=== PATIENT | female | born 1980 | race Caucasian/White ===

== ENCOUNTER 2019-01-09 18:52 | Inpatient (IN) | payer OTHER ==
--- NOTE | 2019-01-09 19:48 | PN ---
L&D Outpatient: Visit - Reproductive Information Estimated Due Date: 01/04/19 Gestational Age: 40 Weeks and 5 Days : 3 Para: 2 - Reason for Visit Visit Reason: 38yo, , IUP@40+5 here for a labor evaluation - Antepartal Records Antepartal Record: Reviewed, Complicated by: - S<D, AMA - Patient History Patient History Significant: No Review of Systems Constitutional: Uncomfortable CV Complaint: No Respiratory: Shortness of Breath: No Gastrointestinal: No Nausea/Vomiting Genitourinary: No Dysuria, No Bleeding, No Leaking Fluid Musculoskeletal: Contractions Neurological: No Headache Movement: Normal L&D Outpatient: Exam Vitals - Most Recent: HR 88, RR 18, BP 124/71, O2 100% - Cervical Exam Cervical Exam: First exam by RN, high and hard to reach Repeat exam by CNM /-2 - Abdominal Exam Abdomen Exam: Non-Tender - Membranes Membrane Status: Intact - Ultrasound/Biophysical Profile Ultrasound Status: Not Done EFM Findings - External Monitor Findings Baseline Heart Rate: 140 External Monitor Findings: Accelerations Present, No Pattern of Variable or Late Decelerations, Variability Moderate, Baseline Stable External Monitor Findings Comment: No evidence of metabolic acidemia Contractions: Regular - q5 mins L&D Outpatient: Asses/Plan Assessment: 38yo, , IUP@40+5, here in early labor Plan: Continue Observation - Plan: IV pain medication, VE prn
[2019-01-09 20:07] LABS: Urine Appearance Clear; Urine Bacteria 1+ (Absent); Urine Bilirubin Negative (Negative); Urine Blood 1+ (Negative); Urine Color Yellow; Urine Glucose Negative (Negative); Urine Ketones 1+ (Negative); Urine Nitrite Negative (Negative); Urine Protein Negative (Negative); Urine Red Blood Cell Trace(0-2/hpf) (Absent); Urine Specific Gravity 1.008 (1.010-1.030); Urine Squamous Epithelial Cell Present (Absent); Urine Urobilinogen Negative (Negative); Urine White Blood Cell Trace(0-5/hpf) (Absent)
[2019-01-09 20:15] LABS: Urine Benzodiazepine Screen None Detected (None Detect); Urine Opiates Screen None Detected (None Detect)
[2019-01-09] MEDS ORDERED: Nalbuphine* 10 MG/ML 1 ML VIAL IV PRN (21:11)
[2019-01-09] MEDS ORDERED: Promethazine INJ(RESTRICTED)* 25 MG/ML 1 ML VIAL IV PRN (21:11)
[2019-01-09] MEDS ORDERED: Buffered Lidocaine 1% SYRIN* 1 ML/SYRINGE INTRADERM ONE (21:12)
[2019-01-09] MEDS ORDERED: Lactated Ringers 1000 ML Bag* 1,000 ML IV ONE (21:12)
--- NOTE | 2019-01-09 21:21 | HP ---
General Information - Reason for Visit 38, , IUP@40+5 here in early labor - General Information Maternal Age: 38 Grav: 3 Para: 2 SAB: 0 IEA: 0 Estimated Due Date: 01/04/19 Determined By: LMP Gestational Age in Weeks/Days: 40+5 Maternal Blood Type and Rh: B Positive - Results this Serology/RPR Result: Non-Reactive Rubella Result: Immune HBsAg Result: Negative HIV Result: Negative GBS Culture Result: Negative Past Medical History Delivery History: Hx Uncomplicated Vaginal Delivery Past Medical History Comment: Migraine with aura Anxiety Past Surgical History Comment: wisdom tooth extraction Family History Comment: Father: colon cancer Mother: diabetes, cirrhosis Sister 1: obesity PGM: skin cancer, breast cancer PGF: HTN. bladder cancer MGM: diabetes MGF: emphysema - Antepartal Records Antepartal Records: Reviewed, Complicated by: - AMA, S<D Review of Systems Constitutional: Uncomfortable CV Complaint: No Respiratory: Shortness of Breath: No Gastrointestinal: No Nausea/Vomiting Genitourinary: No Dysuria, No Leaking Fluid, Spotting - bloody show Musculoskeletal: Contractions Neurological: No Headache Movement: Normal Exam Allergies/Adverse Reactions: Allergies sulfamethoxazole [From Bactrim] Allergy (Severe, Verified 01/09/19 21:25) See Comment TONGUE SWELLING trimethoprim [From Bactrim] Allergy (Severe, Verified 01/09/19 21:25) See Comment TONGUE SWELLING HR 88, RR 18, BP 124/71, O2 100% Lab Values - Entire Visit: Laboratory Tests 01/09/19 01/09/19 19:10 19:10 Urine Color Yellow Urine Appearance Clear Urine pH 7.0 Ur Specific Gates 1.008 L Urine Protein Negative Urine Ketones 1+ A Urine Blood 1+ A Urine Nitrate Negative Urine Bilirubin Negative Urine Urobilinogen Negative Ur Leukocyte Esterase Negative Urine WBC (Auto) Trace(0-5/hpf) Urine RBC (Auto) Trace(0-2/hpf) Ur Squamous Epith Cells Present A Urine Bacteria 1+ A Urine Glucose Negative Urine Opiates Screen None detected Ur Barbiturates Screen None detected Ur Phencyclidine Scrn None detected Ur Amphetamines Screen None detected U Benzodiazepines Scrn None detected Urine Cocaine Screen None detected U Cannabinoids Screen None detected - Measurements Height: 5 ft 3 in Weight: 155 lb Weight in lbs: 155.142400 Body Mass Index (BMI): 27.4 Pre- Weight: 143 lb Weight Gained This : 12 lbs and 0 ozs - Exam Breast: Breast Exam Deferred CVA: No CVA Tenderness Extremities: No Edema Heart: Normal Rhythm/Heart Sounds HEENT: No Significant Findings Lungs: Clear Bilaterally Rectal: Rectal Exam Deferred Reflexes: DTR 2+ - Ultrasound/Biophysical Profile Ultrasound Status: Not Done Targeted Exam Findings Estimated Weight: 7lbs Cervical Exam: 1cm Effacement: 70% Station: -2 Presenting Part: Vertex Membrane Status: Intact Bleeding/Discharge: Bloody Show EFM Findings - External Monitor Findings Baseline Heart Rate: 140 External Monitor Findings: Accelerations Present, No Pattern of Variable or Late Decelerations, Variability Moderate External Monitor Findings Comment: No evidence of metabolic acidemia Contractions: Regular, 45-90 Seconds - q4-5 Assessment/Plan - Assessment 38yo, , IUP@40+5 in early labor GBS negative, RI, B+, VSS : S<D, AMA No evidence of metabolic acidemia Regular contractions, good resting tone Pt very uncomfortable with contractions, requesting pain medication - Plan Plan: Admit - Anticipate Vaginal Delivery Plan Comment: Admit to L&D PARQ discussion about pain relief options. Given pt is at 1cm, will start with IV nubain/phenergan Plan for epidural with advancing cervical dilation Anticipate progression to active labor and
[2019-01-09 21:39] LABS: ABS Lymphocytes 1.4 10^3/ul (1.0-4.8); ABS Monocytes 0.7 10^3/ul (0-0.8); ABS Neutrophils 7.2 10^3/ul (1.5-7.7); Eosinophil % 0.4 %; Hematocrit 40 % (35-47); Hemoglobin 13.4 g/dL (12.0-16.0); Lymphocyte % 15.2 %; Mean Corpuscular HGB Conc 34 g/dL (31-36); Mean Corpuscular Hemoglobin 31 pg (27-31); Mean Corpuscular Volume 92 fL (80-97); Mean Platelet Volume 9.9 fL (7.4-10.4); Platelet Count 163 10^3/uL (150-450); Red Cell Distribution Width 14 % (10-15); White Blood Count 9.4 10^3/uL (3.5-10.8)
[2019-01-09] MEDS: Lactated Ringers 1000 ML Bag* 1,000 ML IV SCH (23:30)
--- NOTE | 2019-01-09 23:37 | PN ---
Progress Note - Progress Note Date of Service: 01/09/19 Note: S: Called by RN for SROM to mec-stained fluid. Pt is shaking and uncomfortable in bed, requesting an epidural O: Per RN check, 6cm/70%/-3 FHR: 140, moderate variability, +accels, occasional variable decels Contractions: q5 mins A: IUP@40+5 in active labor regular contractions no evidence of metabolic acidemia P: Epidural now. Anesthesia notified. VE PRN Anticipate progression to
[2019-01-09] MEDS ORDERED: Bupivacaine 0.25% SDV PF* 10 ML VIAL INJ ONE (23:43)
[2019-01-09] MEDS ORDERED: OBEPIDURAL* 250 ML EPIDURAL ONE (23:49)
[2019-01-10] MEDS ORDERED: Famotidine TAB* 20 MG PO PRN (00:09)
[2019-01-10] MEDS ORDERED: Sodium Citrate/Citric Acid* 15 ML UDC PO PRN (00:09)
[2019-01-10] MEDS ORDERED: EPHEDrine (Pressors)* 50 MG/ML VIAL IV PUSH PRN (00:09)
[2019-01-10] MEDS ORDERED: Phenylephrine 40 MCG/ML SYRINGE IV PUSH PRN (00:09)
[2019-01-10] MEDS ORDERED: Lactated Ringers 1000 ML Bag* 1,000 ML IV ONE (00:09)
[2019-01-10] MEDS ORDERED: Oxytocin in LR* 20 UNITS/1,000 ML BAG IVPB ONE (00:53)
[2019-01-10] MEDS ORDERED: Lactated Ringers 1000 ML Bag* 1,000 ML IV SCH ×2 (01:00→07:00)
[2019-01-10] MEDS ORDERED: OBEPIDURAL* 250 ML EPIDURAL SCH (01:00)
--- NOTE | 2019-01-10 02:50 | PN ---
Progress Note - Progress Note Date of Service: 01/10/19 Note: S: Pt is comfortable with epidural, shaking. O: Per RN check, 10cm/100%/-1 FHR: 140, moderate variability, +accels, occasional variable decels Contractions: q2-3 mins A: IUP@40+5 in active labor regular contractions no evidence of metabolic acidemia P: VE PRN Anticipate progression to
[2019-01-10] MEDS: Lactated Ringers 1000 ML Bag* 1,000 ML IV SCH (03:55)
[2019-01-10] MEDS ORDERED: Dibucaine 1% 28.35 GM TUBE PR PRN (06:16)
[2019-01-10] MEDS ORDERED: Glycerin ADULT SUPP PR PRN (06:16)
[2019-01-10] MEDS ORDERED: Witch Hazel PAD* JAR TOPICAL PRN (06:16)
--- NOTE | 2019-01-10 06:34 | PROCNOTE ---
[facility] OB: Delivery Note - Delivery A Date of : 01/10/19 Time of : 05:42 [place] Sex: Female Weight at : 7 lb Score 1 Minute: 6 Score 5 Minutes: 9 Gestational Age in Weeks and Days at Delivery: 40 Weeks and 6 Days Delivery Method: Spontaneous Vaginal Labor: Spontaneous Amniotic Fluid: Meconium Estimated Blood Loss: 300 Anesthesia/Analgesia: CEI for Labor Delivered By: Angie Milligan Nursery Level of Nursery: Regular/Bedside - Perineum Perineal Injury: Abrasion Only - Not Repaired Perineal Injury Comment: Periurthral abrasion Perineal Repair: None - Events Delivery Events of Note: Pitocin During Labor - Additional Delivery Notes Additional Delivery Notes: G3, now P3 at 40+5 weeks admitted in early labor. Following SROM with thin mec, pt requested an epidural. She then progressed to complete and complete, began spontaneously pushing at 0436 with good maternal effort. Slow controlled delivery of infant head OA to SHIRA at 0542. Shoulders followed with next push and passed to maternal abdomen. Spontaneous cry, HR > 110. Apgars 6 and 9. Cord doubly clamped and cut by infant's father once pulsations ceased, at least 3 minutes. Placenta delivered spontaneous and trini at 0608. Pitocin increased to 250 cc for brisk vaginal bleeding which quickly resolved, fundus firm with massage. Perineum and vagina carefully inspected, a periurethral abrasion was noted, but not repaired. Female infant , mother and baby stable at time of note. EBL = 300cc.
[2019-01-10] MEDS ORDERED: Oxytocin in LR* 20 UNITS/1,000 ML BAG IVPB SCH (07:00)
[2019-01-10] MEDS ORDERED: Ammonia Inhalant* 1 EA AMP ONE (07:47)
[2019-01-10] MEDS ORDERED: Ampicillin ADVAN(*) 2 GM in NS 0.9% 100 ML* 100 ML IVPB ONE (08:00)
[2019-01-10] MEDS ORDERED: Simethicone TAB* 80 MG TAB.CHEW PO SCH (08:30)
[2019-01-10] MEDS ORDERED: Gentamicin ADULT (*) 100 MG in NS 0.9% 100 ML* 100 ML IVPB ONE (08:30)
[2019-01-10] MEDS: Ibuprofen TAB* 600 MG PO SCH ×3 (09:29→21:57)
[2019-01-10] MEDS: Docusate CAP* 100 MG PO SCH ×3 (09:29→21:57)
--- NOTE | 2019-01-10 15:28 | PN ---
Progress Note - Progress Note Date of Service: 01/10/19 Note: Call by RN to report pt's uterus in above the umbilicus and deviated to the left. Pt reports full voids. Scant amount of lochia rubra noted on pad. Fundus firm to palpation on exam. No bleeding noted with fundal massage. Reviewed ultrasounds. No fibroids noted. Plan to bladder scan pt. Will monitor bleeding closely. If bleeding increases consider uterine atony vs. retained POC. -AM
[2019-01-10] MEDS ORDERED: Lidocaine 2% JELLY* 6 ML JELLY TOPICAL ONE (20:58)
[2019-01-10] MEDS: Escitalopram * 10 MG TAB PO SCH (21:57)
[2019-01-11] MEDS: Acetaminophen TAB* 325 MG PO PRN ×2 (01:18→08:38)
[2019-01-11] MEDS: Ibuprofen TAB* 600 MG PO SCH ×4 (04:03→21:36)
[2019-01-11 06:51] LABS: ABS Eosinophils 0.1 10^3/ul (0-0.6); ABS Lymphocytes 1.5 10^3/ul (1.0-4.8); ABS Monocytes 0.7 10^3/ul (0-0.8); ABS Neutrophils 6.9 10^3/ul (1.5-7.7); Eosinophil % 1.2 %; Hematocrit 31 % (35-47); Hemoglobin 10.9 g/dL (12.0-16.0); Lymphocyte % 16.4 %; Mean Corpuscular HGB Conc 36 g/dL (31-36); Mean Corpuscular Hemoglobin 33 pg (27-31); Mean Corpuscular Volume 92 fL (80-97); Mean Platelet Volume 10.1 fL (7.4-10.4); Platelet Count 134 10^3/uL (150-450); Red Blood Count 3.32 10^6 /uL (3.70-4.87); Red Cell Distribution Width 14 % (10-15); White Blood Count 9.2 10^3/uL (3.5-10.8)
[2019-01-11] MEDS: Docusate CAP* 100 MG PO SCH ×3 (08:38→21:36)
[2019-01-11] MEDS ORDERED: Ferrous Gluconate TAB* 324 MG TAB PO SCH (09:00)
[2019-01-11] MEDS ORDERED: Influenza VAC *QUAD* 2019-20* 0.5 ML SYRINGE IM ONE (12:00)
--- NOTE | 2019-01-11 16:08 | PN ---
Progress Note - Progress Note Date of Service: 01/11/19 Note: Pt with post delivery bladder distention. Had a Gomez catheter placed 01/10 around 2200 which was removed at pt request after 12 hours this morning around 1000. RN has been monitoring pre and post void bladder volumes. Initially pre void was approx 500mL per RN and pt only able to get approx 100mL out. After several hours of trying with minimal success RN reports bladder with approx 350mL by scan. Pt verbalizes strong preference for urology consult prior to discharge as she is not comfortable replacing the Gomez and doesn't want to be discharged home tomorrow with a Gomez with plan to follow-up with urology outpatient. JENNIFER called and spoke with urologist reduction plant supervisor. At this time he recommends the following 1) Reassure pt that this is a normal complication and she will recover 100% in 3-10 days 2) Initiate daily dose of Keflex for prophylaxis 3) Teach pt out to self catheterize 3 times daily. She should void in a hat prior to self cath and then measure total volume after catheterization. 4) Upon discharge she should call urology at to schedule outpatient follow-up. They will work with her to discontinue self catheterization when appropriate Above plan reviewed with RN. She will initiate. Report to LM who will be the discharging provider on 01/12/2019
[2019-01-11] MEDS: Cephalexin CAP* 500 MG PO SCH (16:56)
[2019-01-11] MEDS: Lidocaine 2% JELLY* 6 ML JELLY TOPICAL SCH ×2 (16:59→21:37)
[2019-01-11] MEDS: Escitalopram * 10 MG TAB PO SCH (21:21)
[2019-01-12] MEDS: Ibuprofen TAB* 600 MG PO SCH ×2 (02:00→09:05)
[2019-01-12 08:10] VITALS: BP 120/67
[2019-01-12] MEDS ORDERED: Influenza VAC *QUAD* 2019-20* 0.5 ML SYRINGE IM ONE (09:00)
[2019-01-12] MEDS: Docusate CAP* 100 MG PO SCH (09:05)
[2019-01-12] MEDS: Cephalexin CAP* 500 MG PO SCH (09:05)
--- NOTE | 2019-01-12 11:08 | PN ---
Progress Note - Progress Note Date of Service: 01/12/19 Note: Pt's urinary retention symptoms have improved significantly over night. She was able to void 500 cc in a single sitting and then another 200 cc, with a 100 cc residual. No palpable bladder distension, and she is finding it easier to initiate stream of urine, as well as reporting urine stream feels much stronger. Fundas firm at 2cc below umbilicus. Small rubra lochia. Perineum still mildly edematous with bruising noted to lower right of introitus. Consulted with Dr. Oliveira by phone. He is comfortable with pt discontinuing catheterization at this time and following up outpatient with Urology this week. She will continue to take prophylactic Keflex. Reviewed at length signs of urinary retention, how/ when to call. Pt comfortable with this plan. Will discharge home in stable condition.
== END 2019-01-12 11:58 | disposition home or self-care (01) | DRG 807 ==
LOC: MCHOBOUT 18:52 → MCHOB 23:15
PROVIDERS: ADMIT Advanced Practice Midwife; ATTEND Advanced Practice Midwife
PROC: 10E0XZZ Delivery of Products of Conception, External Approach (ICD-10-PCS; principal; 2019-01-10)
PROC: 4A1HXCZ Monitoring of Products of Conception, Cardiac Rate, External Approach (ICD-10-PCS; 2019-01-10)
DX: O48.0 Post-term pregnancy (principal); O77.0 Labor and delivery complicated by meconium in amniotic fluid; O71.82 Other specified trauma to perineum and vulva; R33.9 Retention of urine, unspecified; O76 Abnormality in fetal heart rate and rhythm complicating labor and delivery; O90.89 Other complications of the puerperium, not elsewhere classified; Z37.0 Single live birth; Z3A.40 40 weeks gestation of pregnancy; Z88.2 Allergy status to sulfonamides; Z88.1 Allergy status to other antibiotic agents; Z23 Encounter for immunization
CPT/HCPCS: 36415; 80307; 81003; 81015; 85025; 86850; 86900; 86901; 87086; 90686; A9270-GY; J1580; J2300; J2550; J3490

== ENCOUNTER 2019-06-15 05:25 | Emergency (ER) | payer OTHER ==
[2019-06-15] MEDS ORDERED: NS 0.9% 1000 ML** 1,000 ML IV ONE (05:47)
[2019-06-15] MEDS ORDERED: Ketorolac INJ* 30 MG/ML 1 ML VIAL IV PUSH ONE (05:48)
--- NOTE | 2019-06-15 05:48 | ED ---
Abdominal Pain/Female - HPI Summary HPI Summary: Patient is a 30-year-old female who presents emergency department for right lower quadrant abdominal pain, vomiting, diarrhea and nausea that started yesterday around 1400. Associated symptoms of decreased appetite. Patient notes pain is constant and increases at times. Pain is sharp and cramping in nature. Denies dysuria or hematuria. No past medical history. 5 months . On oral contraceptives. No history of abdominal surgery. Symptoms are moderate in severity. No current modifying factors. - History of Current Complaint Chief Complaint: EDAbdPain Stated Complaint: ABD/FLANK PAIN PER PT Time Seen by Provider: 06/15/19 05:37 Hx Obtained From: Patient Hx Last Menstrual Period: 02/15/15 Pain Intensity: 7 Allergies/Adverse Reactions: Allergies Allergy/AdvReac Type Severity Reaction Status Date / Time sulfamethoxazole Allergy Severe See Comment Verified 06/15/19 05:30 [From Bactrim] trimethoprim [From Bactrim] Allergy Severe See Comment Verified 06/15/19 05:30 Home Medications: Home Medications Escitalopram Oxalate [Lexapro 10 mg] 20 mg PO DAILY 02/18/15 [History Confirmed 06/15/19] traMADol TAB* [Ultram*] 50 mg PO Q6HR PRN #20 tab MDD 4 06/15/19 [Rx] PMH/Surg Hx/FS Hx/Imm Hx Previously Healthy: Yes Endocrine/Hematology History: Denies: Hx Diabetes, Hx Thyroid Disease Cardiovascular History: Denies: Hx Hypertension Respiratory History: Denies: Hx Asthma, Hx Chronic Obstructive Pulmonary Disease (COPD) GI History: Denies: Hx Ulcer Psychiatric History: Reports: Hx Anxiety Infectious Disease History: Yes Infectious Disease History: Reports: Hx of Known/Suspected MRSA Denies: Hx Hepatitis, Hx Human Immunodeficiency Virus (HIV), Traveled Outside the [place] in Last 30 Days - Family History Known Family History: Positive: Non-Contributory - Social History Occupation: Employed Full-time Lives: With Family Alcohol Use: Occasionally Substance Use Type: Reports: None Smoking Status (MU): Former Smoker Review of Systems Constitutional: Negative Negative: Fever ENT: Negative Cardiovascular: Negative Respiratory: Negative Positive: Abdominal Pain, Diarrhea, Nausea. Negative: Vomiting Genitourinary: Negative Negative: dysuria Neurological/Mental Status: Negative All Other Systems Reviewed And Are Negative: Yes Physical Exam Triage Information Reviewed: Yes Vital Signs On Initial Exam: Initial Vitals Temp Pulse Resp BP Pulse Ox 98.1 F 94 15 114/85 97 06/15/19 05:27 06/15/19 05:27 06/15/19 05:27 06/15/19 05:27 06/15/19 05:27 Vital Signs Reviewed: Yes Appearance: Positive: Pain Distress - Patient lying in bed, appears uncomfortable and nontoxic. Holding lower abdomen. Skin: Positive: Warm, Dry Head/Face: Positive: Normal Head/Face Inspection Eyes: Positive: Normal, EOMI Neck: Positive: Supple Respiratory/Lung Sounds: Positive: Clear to Auscultation, Breath Sounds Present Cardiovascular: Positive: Normal, RRR Abdomen Description: Positive: Other: - Abdomen is bloated with tenderness to the right lower quadrant and right upper quadrant on palpation. No rebound tenderness or guarding.. Negative: CVA Tenderness (R), CVA Tenderness (L) Neurological: Positive: Normal, CN Intact II-III Psychiatric: Positive: Affect/Mood Appropriate Procedures - Sedation Patient Received Moderate/Deep Sedation with Procedure: No Diagnostics - Vital Signs Vital Signs Temp Pulse Resp BP Pulse Ox 06/15/19 05:27 98.1 F 94 15 114/85 97 - Laboratory Result Diagrams: 06/15/19 06:00 06/15/19 06:00 Lab Statement: Any lab studies that have been ordered have been reviewed, and results considered in the medical decision making process. Abdominal Pain Fem Course/Dx - Course Course Of Treatment: Pt. with RLQ pain, bloating, N/D since yesterday. Afebrile. Pt. started on IV fluids and given toradol for pain. Labs and CT pending. Labs unremarkable. U/A shows RBCs, WBCs and bacteria, nitrate negative. Pain improved after toradol. . CT abd./pelvis per radiology: IMPRESSION: 1. 20.5 CM CYSTIC LESION ORIGINATING FROM THE RIGHT ADNEXA EXTENDING TO THE ABDOMEN MOST. 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 Pt. sees [facility] [place] and case discussed with Dr. Forbes and he would like to see her in office ALFIE to discuss treatment plan. Plan discussed with pt. and . Small rx of ultram rx for pain. Pt. will call office today for apt. Will return to ER for increased pain, fever, or if concerned. Pt. understands and agrees with plan. - Diagnoses Differential Diagnosis: Positive: Appendicitis, Constipation, Ectopic , Ovarian Cyst, Renal Colic, Urinary Tract Infection Provider Diagnoses: Ovarian mass, right Discharge ED - Sign-Out/Discharge Documenting (check all that apply): Patient Departure - Discharge Plan Condition: Improved Disposition: HOME Prescriptions: traMADol TAB* [Ultram*] 50 mg PO Q6HR PRN #20 tab MDD 4 PRN Reason: Pain - Moderate Patient Education Materials: Ovarian Cyst (ED) Referrals: Rahat Forbes MD [Medical Doctor] - Additional Instructions: Dr. Forbes's office will be contacting you this week to set up an appointment If you do not hear from office please call to schedule an appointment Pain medications as directed Can also take ibuprofen 400mg every 6 hours for pain as directed Return to ER for fever, increased pain, vomiting, or if concerned - Billing Disposition and Condition Condition: IMPROVED Disposition: Home - Attestation Statements Provider Attestation: I was available for consultation for this patient. I did not evaluate the patient or participate in any medical decision making or disposition decisions unless I am specifically named in the chart as having consulted on the patient. If I have consulted on the patient, please see my own ED note on the patient encounter. Kar Ferrer MD
[2019-06-15 06:10] LABS: Urine Appearance Clear; Urine Bilirubin Negative (Negative); Urine Blood 1+ (Negative); Urine Color Straw; Urine Glucose Negative (Negative); Urine Ketones Negative (Negative); Urine Nitrite Negative (Negative); Urine Protein Negative (Negative); Urine Specific Gravity 1.005 (1.010-1.030); Urine Urobilinogen Negative (Negative)
[2019-06-15 06:12] LABS: ABS Eosinophils 0.1 10^3/ul (0-0.6); ABS Lymphocytes 1.1 10^3/ul (1.0-4.8); ABS Monocytes 0.4 10^3/ul (0-0.8); ABS Neutrophils 3.2 10^3/ul (1.5-7.7); Eosinophil % 1.9 %; Hematocrit 45 % (35-47); Hemoglobin 15.7 g/dL (12.0-16.0); Lymphocyte % 23.3 %; Mean Corpuscular HGB Conc 35 g/dL (31-36); Mean Corpuscular Hemoglobin 32 pg (27-31); Mean Corpuscular Volume 90 fL (80-97); Mean Platelet Volume 8.6 fL (7.4-10.4); Nucleated Red Blood Cells % 0.1; Platelet Count 184 10^3/uL (150-450); Red Blood Count 4.95 10^6 /uL (3.70-4.87); Red Cell Distribution Width 13 % (10-15); White Blood Count 4.8 10^3/uL (3.5-10.8)
[2019-06-15 06:31] LABS: Albumin 4.4 g/dL (3.2-5.2); Albumin/Globulin Ratio 1.8 (1-3); BUN/Creatinine Ratio 19.1 (8-20); C Reactive Protein 2.9 mg/L (<8.01); Calcium 9.3 mg/dL (8.6-10.3); EGFR African American 85.9 (>60); Globulin 2.5 g/dL (2-4); Potassium 3.8 mmol/L (3.5-5.0); Total Bilirubin 0.8 mg/dL (0.2-1.0); Total Protein 6.9 g/dL (6.4-8.9)
[2019-06-15 06:35] LABS: HCG Pregnancy 1.26 mIU/mL
[2019-06-15 06:36] LABS: Urine Bacteria 1+ (Absent); Urine Red Blood Cell 1+(3-5/hpf) (Absent); Urine Squamous Epithelial Cell Present (Absent); Urine White Blood Cell 3+(>20/hpf) (Absent)
[2019-06-15] MEDS ORDERED: Iohexol 300* (CONTRAST) 10 ML SDV IV ONE (08:01)
[2019-06-15 10:16] VITALS: BP 139/83
[2019-06-15] MEDS ORDERED: traMADol TAB* 50 MG PO ONE (10:16)
== END 2019-06-15 10:40 | disposition home or self-care (01) ==
LOC: ED 05:25
DX: N83.9 Noninflammatory disorder of ovary, fallopian tube and broad ligament, unspecified (principal); R10.31 Right lower quadrant pain; R11.2 Nausea with vomiting, unspecified; R19.7 Diarrhea, unspecified; F41.9 Anxiety disorder, unspecified; Z88.2 Allergy status to sulfonamides; Z87.891 Personal history of nicotine dependence
CPT/HCPCS: 36415; 74177; 80053; 81003; 81015; 83690; 84702; 85025; 86140; 87077; 87086; 96361; 96374; 99283; A9270-GY; J1885; Q9967

== ENCOUNTER 2019-06-24 06:57 | Day surgery (SDC) | payer OTHER ==
[~2019-06-24 06:57] MED LIST: Buffered Lidocaine 1% SYRIN* 1 ML/SYRINGE INTRADERM ONE; Lactated Ringers 1000 ML Bag* 1,000 ML IV SCH
[2019-06-24] MEDS ORDERED: Buffered Lidocaine 1% SYRIN* 1 ML/SYRINGE INTRADERM ONE (07:51)
[2019-06-24] MEDS ORDERED: fentaNYL* 50 MCG/ML 2 ML VIAL (100 MCG VIAL) ONE ×2 (08:14→11:06)
[2019-06-24] MEDS ORDERED: Rocuronium* 10 MG/ML VIAL ONE (08:14)
[2019-06-24] MEDS ORDERED: Propofol* 10 MG/ML 20 ML BTL ONE (08:14)
[2019-06-24] MEDS ORDERED: Lidocaine 2% PF * 5 ML VIAL ONE (08:14)
[2019-06-24] MEDS ORDERED: Midazolam* 1 MG/ML 2 ML VIAL (2 MG) ONE (08:14)
[2019-06-24 08:31] LABS: ABS Lymphocytes 0.9 10^3/ul (1.0-4.8); ABS Monocytes 0.4 10^3/ul (0-0.8); ABS Neutrophils 3.9 10^3/ul (1.5-7.7); Eosinophil % 0.9 %; Hematocrit 46 % (35-47); Hemoglobin 15.9 g/dL (12.0-16.0); Lymphocyte % 16.5 %; Mean Corpuscular HGB Conc 34 g/dL (31-36); Mean Corpuscular Hemoglobin 31 pg (27-31); Mean Corpuscular Volume 91 fL (80-97); Mean Platelet Volume 8.8 fL (7.4-10.4); Nucleated Red Blood Cells % 0.2; Platelet Count 205 10^3/uL (150-450); Red Blood Count 5.09 10^6 /uL (3.70-4.87); Red Cell Distribution Width 13 % (10-15); White Blood Count 5.2 10^3/uL (3.5-10.8)
[2019-06-24] MEDS ORDERED: Lidocaine 1% w EPI 1:100,000* MDV 20 ML VIAL ONE (09:53)
[2019-06-24] MEDS ORDERED: Naloxone* 0.4 MG/ML 1 ML VIAL IV PRN (10:06)
[2019-06-24] MEDS ORDERED: Acetaminophen TAB* 325 MG PO PRN (10:06)
[2019-06-24] MEDS ORDERED: oxyCODONE TAB* 5 MG TAB PO PRN (10:06)
[2019-06-24] MEDS ORDERED: DiMENhydriNATE IV* 50 MG/ML VIAL IV PUSH PRN (10:06)
[2019-06-24] MEDS: fentaNYL* 50 MCG/ML 2 ML VIAL (100 MCG VIAL) IV PRN ×2 (11:08→12:03)
[2019-06-24] MEDS ORDERED: oxyCODONE TAB* 5 MG TAB ONE (12:34)
[2019-06-24 12:48] VITALS: BP 124/75
--- NOTE | 2019-06-24 20:18 | OP ---
DATE OF OPERATION: 06/24/19 [facility] DATE OF : 80 SURGEON: Rahat Forbes MD ALLERGY AND IMMUNOLOGY CHIEF: Adan Steiner MD ANESTHESIA: General endotracheal tube. PRE-OP DIAGNOSES: 1. Right ovarian cyst. 2. Desires permanent sterilization. POST-OP DIAGNOSES: 1. Right ovarian cyst. 2. Desires permanent sterilization. OPERATIVE PROCEDURE: Laparotomy, right salpingo-oophorectomy, left salpingectomy. ESTIMATED BLOOD LOSS: 50 cc. SPECIMENS: Include right tube and ovary and left fallopian tube. FINDINGS: Include a very large 30 x 30 cm smooth-walled ovarian cyst. Normal- appearing left ovary and fallopian tube with a small corpus luteum on it and normal- appearing uterus. Bowels that were seen appeared normal. DESCRIPTION OF PROCEDURE: The patient identified, procedure identified as a laparotomy, right salpingo-oophorectomy, and left salpingectomy. The patient was taken to the operating room, prepped and draped in usual fashion in the supine position under general anesthesia. 10 cc of 0.25% Marcaine with epi was injected to the incision site. An incision was made with a knife approximately 8 cm in length and carried down through fat, fascia, and peritoneum. An Teodoro retractor was placed and the ovary was found to be smooth-walled. The ovary was poked with a 5 mm trocar and a balloon inflated to prevent spillage of the fluid. A small amount of fluid spilled under pressure and placement. The cyst was drained and whole ovary was brought out through abdominal incision. LigaSure Impact was used to cauterize and cut the infundibulopelvic ligament as well as the proximal fallopian tube, and the ovary and fallopian tube were excised. The left ovary was inspected and the left fallopian tube grasped at its fimbriated end, and a large section of the left fimbria and fallopian tube was excised on the left side using the LigaSure Impact, cauterized and then cut. Good hemostasis was verified in both pedicles. The peritoneum was closed using 3-0 Vicryl in a running fashion. The fascia was closed using 0 Polysorb in a running fashion. Hemostasis was seen in the subrectus and the subcuticular layers and the skin was closed with 4-0 Vicryl in a subcuticular fashion and skin glue was applied. All sponge and instrument counts were correct and the patient returned to recovery room in stable condition. [id number]/[facility] #: [id number] DEBORAH
== END 2019-06-24 12:57 | disposition home or self-care (01) ==
LOC: OR 06:57
PROVIDERS: ATTEND Obstetrics & Gynecology
DX: Z30.2 Encounter for sterilization (principal); N83.291 Other ovarian cyst, right side; R19.00 Intra-abdominal and pelvic swelling, mass and lump, unspecified site; F41.8 Other specified anxiety disorders; G43.909 Migraine, unspecified, not intractable, without status migrainosus; Z87.891 Personal history of nicotine dependence; Z88.2 Allergy status to sulfonamides
CPT/HCPCS: 36415; 81025; 85025; 86850; 86900; 86901; 88305; A9270-GY; J2250; J2704; J3010